=== PATIENT | female | born 1965 | race Caucasian/White ===

== ENCOUNTER 2021-06-19 11:20 | Outpatient (CLI) | payer MEDICARE, SELFPAY ==
--- NOTE | 2021-06-19 11:24 | MM_ITS ---
WS: [id number] Exam: [id number] Date/Time of Exam: 06/19/2021 11:26 AM Reason For Exam: SCREENING VIEWS: MLO and CC views both breasts. Comparison made with prior exam of 06/02/2017. Findings: There was no sign of mass, architectural distortion or suspicious calcification in either breast. He terogeneously dense MM/[place] [id number] Impression: BI-RADS: 2-Benign FOLLOW-UP: 1 Year Follow-up This mammogram was also analyzed by the Computer Aided Detection System R2 Imag e Deployment Engineer.
== END 2021-06-19 11:21 | disposition home or self-care (01) ==
PROVIDERS: PCP Family Medicine; Visit Provider Family Medicine
DX: Z12.31 Encounter for screening mammogram for malignant neoplasm of breast (principal)
CPT/HCPCS: 77067

== ENCOUNTER → 2021-08-04 10:09 | Outpatient (BNVA) | payer MEDICARE, SELFPAY | PROVIDERS: PCP Family Medicine; Referring Provider Family Medicine; Visit Provider Obstetrics & Gynecology | DX: N89.8 Other specified noninflammatory disorders of vagina (principal) | CPT/HCPCS: 87070; 87205 ==

== ENCOUNTER 2022-09-09 13:32 | Outpatient (CLI) | payer MEDICARE, SELFPAY ==
--- NOTE | 2022-09-09 14:01 | XR_ITS ---
WS: [id number] DEXA (DUAL ENERGY X-RAY ABSORPTIOMETRY) Bone mineral density was performed using a [employer] machine. HISTORY: POSTMENOPAUSAL COMPARISON: None available. Lumbar spine BMD (L1-L4): 1.033 g/cm2 T score: -1.2 Z score: -0.5 Total hip BMD: Left: 0.996 g/cm2. T score: -0.1 Z score: 0.5 Right: 1.026 g/cm2. T score: 0.1 Z score: 0.7 10 year probability of a major osteoporotic fracture is 11.3%. XR/XR DEXA axial skeleton* [id number] IMPRESSION: OSTEOPENIA based upon the WHO classification for females.
== END 2022-09-09 13:33 | disposition home or self-care (01) ==
LOC: RAD 13:37
PROVIDERS: PCP Family Medicine; Visit Provider Family Medicine
DX: Z78.0 Asymptomatic menopausal state (principal)
CPT/HCPCS: 77080

== ENCOUNTER → 2024-03-07 14:58 | Outpatient (CLI) | payer MEDICARE, SELFPAY ==
--- NOTE | 2024-03-07 15:22 | MM_ITS ---
WS: [id number] BILATERAL 3D TOMOSYNTHESIS DIGITAL SCREENING MAMMOGRAPHY WITH CAD CLINICAL INFORMATION: SCREEN HISTORY: Screening mammogram. No current complaints. COMPARISON: 2020 TECHNIQUE: Bilateral CC and MLO views. FINDINGS: The breasts are composed of heterogeneous fibroglandular density tissue, which can limit the detectio n of small underlying mass lesions. No suspicious mass, asymmetry, calcifications, or architectural d istortion. No evidence of malignancy. Incidental punctate and lucent centered calcifications. MM/[place] [id number] IMPRESSION: BI-RADS: 2-Benign FOLLOW UP: 1 Year Follow-up Recommend return to annual screening mammography.
== END | disposition home or self-care (01) ==
LOC: RAD 14:58
PROVIDERS: PCP Family Medicine; Visit Provider Family Medicine
DX: Z12.31 Encounter for screening mammogram for malignant neoplasm of breast (principal); R92.333 Mammographic heterogeneous density, bilateral breasts; R92.1 Mammographic calcification found on diagnostic imaging of breast
CPT/HCPCS: 77063; 77067

== ENCOUNTER 2024-10-07 11:18 | Emergency (ER) | payer MEDICARE, SELFPAY ==
--- NOTE | 2024-10-07 11:21 | XRR_ITS ---
PROCEDURE INFORMATION: Exam: XR Chest Exam date and time: 10/07/2024 11:28 AM Age: 59 years old Clinical indication: Cough and dyspnea; Additional info: Dyspnea/cough TECHNIQUE: Imaging protocol: Radiologic exam of the chest. Views: 1 view. COMPARISON: No relevant prior studies available. FINDINGS: Lungs: Linear scarring or atelectasis is noted at the left lung base. No consolidated infiltrates are noted. Pleural spaces: Unremarkable. No pleural effusion. No pneumothorax. Heart/Mediastinum: Calcified lymph nodes/granuloma seen in the left perihilar region. Heart size is normal. There is calcified plaque involving the aorta. Bones/joints: Unremarkable. XR/XR chest 1V portable [id number] IMPRESSION: 1. Linear scarring or atelectasis left lung base.
--- NOTE | 2024-10-07 11:21 | CTR_ITS ---
PROCEDURE INFORMATION: Exam: CT Abdomen And Pelvis With Contrast Exam date and time: 10/07/2024 12:17 PM Age: 59 years old Clinical indication: Abdominal pain; Epigastric; Prior surgery; Surgery date: 6+ months; Surgery type: Hysterectomy, appy; Additional info: Abd pain TECHNIQUE: Imaging protocol: Computed tomography of the abdomen and pelvis with contrast. Radiation optimization: All CT scans at this facility use at least one of these dose optimization techniques: automated exposure control; mA and/or kV adjustment per patient size (includes targeted exams where dose is matched to clinical indication); or iterative reconstruction. Contrast material: OMNIPAQUE 350; Contrast volume: 100 ml; Contrast route: INTRAVENOUS (IV); COMPARISON: CR (CHEST, ) 10/07/2024 11:28 AM RADIATION DOSE METRICS: Total DLP (mGy-cm): 699.69 FINDINGS: Lungs: 4 mm nodule in the right lower lobe series 3, image 6. 3 mm right lower lobe nodule series 3, image 10 and 9. Mild basilar scar versus atelectasis. Heart: Minimal pericardial effusion. Diaphragm: Moderate hiatal hernia. Liver: No significant liver pathology. Gallbladder and biliary ducts: No significant gallbladder pathology. No biliary dilatation. Pancreas: There is a low-attenuation structure of the posterior aspect of the pancreatic body measuring 10 x 9 mm on series 3, image 44. No main pancreatic ductal dilatation. Spleen: No significant splenic pathology. Adrenal glands: No significant adrenal pathology. Kidneys and ureters: No significant renal pathology. Stomach and bowel: Diverticular disease is present, greatest at the level of the sigmoid colon. No evidence of acute diverticulitis. Moderate amount of colonic stool. Appendix: Suture line associated with the cecum suggesting prior appendectomy; no abnormal appendix visualized. Intraperitoneal space: No ascites. Vasculature: No abdominal aortic aneurysm. Lymph nodes: No evidence of lymphadenopathy. Urinary bladder: Unremarkable urinary bladder. Reproductive: No significant uterine pathology. No significant adnexal pathology. Bones/joints: Mild degenerative change present in the spine. Soft tissues: Small bilateral fat containing inguinal hernias. Small fat containing umbilical hernia. CT/CT abdomen pelvis w con* [id number] IMPRESSION: 1. No acute pathology. 2. Diverticulosis with a moderate colonic stool. 3. Moderate hiatal hernia. 4. 1 cm low-attenuation pancreatic body lesion most likely representing side-branch IPMN in absence of history of pancreatitis; MRI recommended for more detailed assessment. 5. Small basilar pulmonary nodules measuring up to 4 mm; per Fleischner criteria, in this age group 12 month follow-up is recommended for surveillance.
[2024-10-07 11:24] VITALS: BP 157/83; PULSE 82; RESP 18; TEMP 37; O2SAT 97; BMI 26.2
--- NOTE | 2024-10-07 11:25 | W.ED.GENADLT ---
HPI - General Adult General: Chief complaint: Shortness of Breath/Dyspnea Stated complaint: black vomit, cough Time Seen by Provider: 10/07/24 11:20 History of Present Illness: 59-year-old female who presents to the emergency room with cough she has had off and on for a year she had various treatments for it been evaluated multiple times began to get worse again earlier this week was thought to be allergies she was started on some steroids. Worsening cough overnight coughed up to her what appeared to be black vomitus. No bright red blood. She denies any fever sweats or chills. No abdominal pain. There is also some thought that she may have worsening cough because of reflux from a hiatal hernia. She currently is 2 days from completing a steroid burst and taper. Associated symptoms: Reports nausea and vomiting; Deny chest pain, dyspnea or rash Related Data Home Medications ?Medication ?Instructions ?Recorded ?Confirmed atorvastatin 10 mg tablet 10 mg PO DAILY 08/04/21 10/07/24 citalopram 40 mg tablet 40 mg PO DAILY 08/04/21 10/07/24 cyclobenzaprine 10 mg tablet 10 mg PO TID PRN muscle spasms 08/04/21 10/07/24 hydrocodone 7.5 mg-acetaminophen 1 tab PO Q8H PRN Pain 08/04/21 10/07/24 325 mg tablet nortriptyline 25 mg capsule 25 mg PO DAILY 08/04/21 10/07/24 alprazolam 0.5 mg tablet 0.5 mg PO TID PRN Anxiety 10/07/24 10/07/24 benzonatate 200 mg capsule 200 mg PO BID PRN Cough 10/07/24 10/07/24 cetirizine 5 mg-pseudoephedrine ER 1 tab PO BID 10/07/24 10/07/24 120 mg tablet,extended release,12hr (Allergy D-12) dextromethorphan polistirex 30 10 ml PO Q12H PRN Cough 10/07/24 10/07/24 mg/5 mL oral susp ext.release 12hr dextromethorphan-guaifenesin 30 1 tab PO Q12H PRN Congestion 10/07/24 10/07/24 mg-600 mg tablet extended [id number] hr (Mucus DM) montelukast 10 mg tablet 10 mg PO DAILY 10/07/24 10/07/24 pantoprazole 40 mg tablet,delayed 40 mg PO DAILY 10/07/24 10/07/24 release prednisone 20 mg tablet 20 mg PO DAILY 10/07/24 10/07/24 Previous Rx's ?Medication ?Instructions ?Recorded gabapentin 300 mg capsule 300 mg PO QID #360 caps 08/27/20 albuterol sulfate 90 mcg/actuation 2 inh inhalation Q4H PRN shortness 10/07/24 aerosol inhaler of breath or wheezing #18 grams Allergies Allergy/AdvReac Type Severity Reaction Status Date / Time codeine Allergy Severe vomiting Verified 08/04/21 09:31 Review of Systems Const: Denies: fever(s) or chills Card: Denies: chest pain Resp: Reports: non-productive cough, wheezing and chest congestion; Denies: dyspnea GI: Reports: abdominal pain, nausea, vomiting and coffee ground emesis : Denies: dysuria, urinary frequency or urinary urgency Musc: Denies: neck pain or back pain Skin/Breast: Denies: rash PFSH ED PFSH: Medical History GERD (gastroesophageal reflux disease) Depression Arthritis Neuropathy Surgical History History of tubal ligation History of appendectomy H/O: hysterectomy Family History Mother Bleeding disorder Brother Hyperlipidemia Hypertension Heart disease Sister Hyperlipidemia Hypertension Heart disease Denies family history of Colon cancer Ovarian cancer Diabetes Clotting disorder Breast cancer Anesthesia complication Uterine cancer Thyroid disease Stroke Social History Smoking and tobacco/nicotine status: never used tobacco/nicotine Alcohol intake: never Substance/Drug Use: never Physical Exam Const: GENERAL APPEARANCE: cooperative ORIENTATION/CONSCIOUSNESS: Yes awake, Yes oriented to person, Yes oriented to place and Yes oriented to time HENMT: COMMON NORMALS: normocephalic, atraumatic and hearing grossly normal bilaterally HEAD & SCALP: normocephalic and atraumatic Resp: COMMON NORMALS: normal respiratory effort, No retractions, No use of accessory muscles and clear to auscultation bilaterally AUSCULTATION: clear to auscultation bilaterally Cardio: COMMON NORMALS: regular rate, regular rhythm and No murmurs present (Cardio) RATE: regular rate RHYTHM: regular rhythm GI: COMMON NORMALS: Soft to palpation and No hepatosplenomegaly present AUSCULTATION: Yes normoactive bowel sounds PALPATION: Yes Soft to palpation, No Tenderness to palpation present (GI), No Guarding due to palpation present (GI) and Yes No hepatosplenomegaly present Extremity: COMMON NORMALS: normal to inspection, capillary refill normal, no clubbing, cyanosis or edema, no calf tenderness and no pedal edema Neuro: SENSORIUM/ORIENTATION: Yes oriented to person, Yes oriented to place and Yes oriented to time Skin: COMMON NORMALS: no rashes or lesions noted GENERAL SKIN EXAM: no rashes or lesions noted Course Vital Signs: Vital signs: Vital Signs Temperature 98.6 F 10/07/24 11:24 Pulse Rate 84 10/07/24 14:06 Respiratory Rate 20 H 10/07/24 14:06 Blood Pressure 124/71 10/07/24 14:06 Pulse Oximetry 95 10/07/24 14:06 Oxygen Delivery Me thod Room Air 10/07/24 12:10 MDM - General Adult Medical Decision Making Oxygen sats remain good vital signs otherwise stable. Patient tested positive for COVID chest x-ray unremarkable discharge home complete the steroid taper she was given previously use albuterol as needed follow-up with primary care. Discussed with the patient likely she will continue to have a cough for some time. Differential Diagnosis Pneumonia PE reflux influenza Medical Records I reviewed the patient's medical records. Lab Data I reviewed the patient's lab results. 10/07/24 11:37 10/07/24 11:37 Radiology Impressions Abdomen/Pelvis CT 10/07/24 11:21 IMPRESSION: 1. No acute pathology. 2. Diverticulosis with a moderate colonic stool. 3. Moderate hiatal hernia. 4. 1 cm low-attenuation pancreatic body lesion most likely representing side-branch IPMN in absence of history of pancreatitis; MRI recommended for more detailed assessment. 5. Small basilar pulmonary nodules measuring up to 4 mm; per Fleischner criteria, in this age group 12 month follow-up is recommended for surveillance. Chest X-Ray 10/07/24 11:21 IMPRESSION: 1. Linear scarring or atelectasis left lung base. Laboratory Results WBC 9.72 10^3/uL (3.29-11.43) 10/07/24 11:37 RBC 4.49 10^6/uL (3.85-5.65) 10/07/24 11:37 Hgb 13.20 g/dL (11.27-16.99) 10/07/24 11:37 Hct 40.3 % (36-47) 10/07/24 11:37 MCV 89.8 fl (85-98) 10/07/24 11:37 MCH 29.4 pg (27-33) 10/07/24 11:37 MCHC 32.8 g/dL (30-55) 10/07/24 11:37 RDW 12.7 % (12.1-15.1) 10/07/24 11:37 Plt Count 195 10^3/cmm (157-399) 10/07/24 11:37 MPV 11.6 fL (7.4-10.4) H 10/07/24 11:37 Neut % (Auto) 83.6 % 10/07/24 11:37 Lymph % (Auto) 8.3 % 10/07/24 11:37 [place] % (Auto) 5.7 % 10/07/24 11:37 Eos % (Auto) 1.1 % 10/07/24 11:37 Baso % (Auto) 0.3 % 10/07/24 11:37 Neut # (Auto) 8.12 10^3/uL (1.8-7.7) H 10/07/24 11:37 Lymph # (Auto) 0.8 10^3/uL (0.8-4.8) 10/07/24 11:37 [place] # (Auto) 0.6 10^3/uL (0.2-0.9) 10/07/24 11:37 Eos # (Auto) 0.1 10^3/uL (0.0-0.8) 10/07/24 11:37 Baso # (Auto) 0.0 10^3/uL (0.0-0.1) 10/07/24 11:37 Nucleated RBC % (auto) 0 % 10/07/24 11:37 Nucleated RBCs # 0.0 /100WBC 10/07/24 11:37 D-Dimer 0.62 ug/mLFEU (0-0.59) H 10/07/24 11:37 Sodium 138 mmol/L (136-145) 10/07/24 11:37 Potassium 3.7 mmol/L (3.5-5.1) 10/07/24 11:37 Chloride 99 mmol/L (98-107) 10/07/24 11:37 Carbon Dioxide 25 mmol/L (22-29) 10/07/24 11:37 Anion Gap 17.7 (5-19) 10/07/24 11:37 BUN 15 mg/dL (8-23) 10/07/24 11:37 Creatinine 0.8 mg/dL (0.5-0.9) 10/07/24 11:37 GFR Calculation 72.9 mL/min (90-130) L 10/07/24 11:37 Glucose 109 mg/dL (65-115) 10/07/24 11:37 Calculated Osmolality 287 mOsm/kg (285-295) 10/07/24 11:37 Calcium 9.2 mg/dL (8.5-10.5) 10/07/24 11:37 Total Bilirubin 0.7 mg/dL (0.15-1.2) 10/07/24 11:37 AST 11 U/L (0-32) 10/07/24 11:37 ALT 9 U/L (0-33) 10/07/24 11:37 Alkaline Phosphatase 88 U/L (35-105) 10/07/24 11:37 Total Protein 7.4 g/dL (6.6-8.7) 10/07/24 11:37 Albumin 4.3 g/dL (3.5-5.2) 10/07/24 11:37 Globulin 3.1 g/dL (1.3-4.6) 10/07/24 11:37 Urine Color Yellow (Yellow) 10/07/24 13:00 Urine Appearance Clear (CLEAR) 10/07/24 13:00 Urine pH 5.5 (5-7) 10/07/24 13:00 Ur Specific [place] 1.051 (1.005-1.030) H 10/07/24 13:00 Urine Protein Negative (Negative) 10/07/24 13:00 Urine Glucose (UA) Negative (Normal) 10/07/24 13:00 Urine Ketones Negative (Negative) 10/07/24 13:00 Urine Blood Negative (Negative) 10/07/24 13:00 Urine Nitrate Negative (Negative) 10/07/24 13:00 Urine Bilirubin Negative (Negative) 10/07/24 13:00 Urine Urobilinogen 0.2 mg/dL (Negative) 10/07/24 13:00 Ur Leukocyte Esterase Negative (Negative) 10/07/24 13:00 Urine RBC 0-2 /hpf (0-2) 10/07/24 13:00 Urine WBC 0-5 /hpf (0-5) 10/07/24 13:00 Ur Squamous Epith Cells 0-5 /hpf (0-5) 10/07/24 13:00 Amorphous Sediment Not Reportable 10/07/24 13:00 Urine Bacteria None seen /hpf (NONE) 10/07/24 13:00 Hyaline Casts 0-4 /lpf H 10/07/24 13:00 Coronavirus (PCR) Positive (Negative) A 10/07/24 12:40 Influenza A (PCR) Negative (Negative) 10/07/24 12:40 Influenza Type B (PCR) Negative (Negative) 10/07/24 12:40 RSV (PCR) Negative (Negative) 10/07/24 12:40 All radiology interpretation(s) finalized by discharge Discharge Plan Discharge Patient Disposition: Home Clinical Impression: COVID-19 Condition: Stable Prescriptions: New albuterol sulfate 90 mcg/actuation HFA aerosol inhaler 2 inh INHALATION Q4H PRN (Reason: shortness of breath or wheezing) Qty: 18 0RF No Action nortriptyline 25 mg capsule 25 mg PO DAILY citalopram 40 mg tablet 40 mg PO DAILY atorvastatin 10 mg tablet 10 mg PO DAILY hydrocodone-acetaminophen 7.5-325 mg tablet 1 tab PO Q8H PRN (Reason: Pain) cyclobenzaprine 10 mg tablet 10 mg PO TID PRN (Reason: muscle spasms) gabapentin 300 mg capsule 300 mg PO QID Qty: 360 0RF cetirizine-pseudoephedrine [Allergy D-12] 5-120 mg Tablet Extended Release 12 Hr 1 tab PO BID dextromethorphan polistirex 30 mg/5 mL Suspension,Extended Rel 12 Hr 10 ml PO Q12H PRN (Reason: Cough) benzonatate 200 mg Capsule 200 mg PO BID PRN (Reason: Cough) prednisone 20 mg Tablet 20 mg PO DAILY alprazolam 0.5 mg Tablet 0.5 mg PO TID PRN (Reason: Anxiety) pantoprazole 40 mg Tablet,Delayed Release (Dr/Ec) 40 mg PO DAILY montelukast 10 mg Tablet 10 mg PO DAILY Mucus DM 30-600 mg Tablet Extended Release 12 Hr 1 tab PO Q12H PRN (Reason: Congestion) Discharge Orders: Discharge ED (Routine); Ordered 10/07/24 Ordered By: Kartik Burden Referrals: Ovidio Park MD [Primary Care Provider] - Discharge Diet: Usual diet Discharge Activity: Resume usual activity Patient Instructions: COVID-19 (Coronavirus Disease 2019) (ED), Opioid Safety, Pain Management Activity Restrictions/Additional Instructions: Thank you for choosing [facility] for your healthcare needs today. It is very important that you follow up as instructed or that you return to the Emergency Department should you have concerns or if your condition changes or worsens in any way. Print Language: [place] Citizen Coding Level of Care Code ED Stove Installer for Rosanne Plunkett
[2024-10-07 11:43] LABS: Basophils % 0.3 %; Eosinophils # 0.1 10^3/uL (0.0-0.8); Eosinophils % 1.1 %; Hematocrit 40.3 % (36-47); Lymphocytes # 0.8 10^3/uL (0.8-4.8); Lymphocytes % 8.3 %; Mean Corpuscular HGB Conc 32.8 g/dL (30-55); Mean Corpuscular Hemoglobin 29.4 pg (27-33); Mean Corpuscular Volume 89.8 fl (85-98); Mean Platelet Volume 11.6 fL (7.4-10.4); Monocytes # 0.6 10^3/uL (0.2-0.9); Monocytes % 5.7 %; Neutrophils # 8.12 10^3/uL (1.8-7.7); Neutrophils % 83.6 %; Nucleated Red Blood Cells % 0 %; Platelet Count 195 10^3/cmm (157-399); Red Blood Count 4.49 10^6/uL (3.85-5.65); Red Cell Distribution Width 12.7 % (12.1-15.1); White Blood Count 9.72 10^3/uL (3.29-11.43)
--- NOTE | 2024-10-07 11:58 | PC.PHAR ---
Pt states only took the medications for cough and congestion this morning.
[2024-10-07 12:05] LABS: Alanine Aminotransferase 9 U/L (0-33); Albumin Level 4.3 g/dL (3.5-5.2); Alkaline Phosphatase 88 U/L (35-105); Anion Gap 17.7 (5-19); Aspartate Amino Transferase 11 U/L (0-32); Blood Urea Nitrogen 15 mg/dL (8-23); Calcium 9.2 mg/dL (8.5-10.5); Carbon Dioxide 25 mmol/L (22-29); Chloride 99 mmol/L (98-107); Creatinine Clr Calc Pharmacy 86.6221; Globulin 3.1 g/dL (1.3-4.6); Glomerular Filtration Rate 72.9 mL/min (90-130); Glucose 109 mg/dL (65-115); Osmolality Calculated 287 mOsm/kg (285-295); Potassium 3.7 mmol/L (3.5-5.1); Sodium 138 mmol/L (136-145); Total Bilirubin 0.7 mg/dL (0.15-1.2); Total Protein 7.4 g/dL (6.6-8.7)
[2024-10-07 12:08] LABS: D Dimer 0.62 ug/mLFEU (0-0.59)
[2024-10-07 12:10] VITALS: PULSE 73; RESP 16; O2SAT 94
[2024-10-07] MEDS: ipratropium-albuterol 3 mL Neb INHALATION (12:10)
[2024-10-07 12:13] VITALS: PULSE 84
[2024-10-07] MEDS: iohexol 350 mg/mL 500 mL Btl (per mL) IV (12:21)
--- NOTE | 2024-10-07 12:35 | ECG_ITS ---
[facility] Test Date: 2024-10-07 Pat Name: Misty Fonseca Department: Room: Gender: Female Business Analysis Specialist: : [id number] Requested By: Kartik Darnell Order Number: [id number] Reading MD: MATHEUS CHONG Measurements Intervals [place] Rate: 92 P: 61 PA: 147 QRS: -4 QRSD: 90 T: 163 QT: 249 QTc: 309 Interpretive Statements SINUS RHYTHM LOW QRS VOLTAGE IN PRECORDIAL LEADS [QRS DEFLECTION < 1.0 mV IN CHEST LEADS] NONSPECIFIC ST & T-WAVE ABNORMALITY No previous ECG available for comparison Electronically Signed On 10-07-2024 19:14:51 AUDITING SPECIALIST by MATHEUS CHONG [email or web address]
[2024-10-07 13:11] LABS: Bilirubin Urine Negative (Negative); Blood Urine Negative (Negative); Glucose Urine UA Negative (Normal); Ketones Urine Negative (Negative); Leukocyte Esterase Urine Negative (Negative); Nitrate Urine Negative (Negative); Protein Urine Negative (Negative); Urine Appearance Clear (CLEAR); Urine Color Yellow (Yellow); Urobilinogen Urine 0.2 mg/dL (Negative); pH Urine 5.5 (5-7)
[2024-10-07 13:13] LABS: Add Urine Microscopic? YES; Bacteria Urine None Seen /hpf; Hyaline Casts Urine 0-4 /lpf; RBC Urine 0-2 /hpf (0-2); Squamous Epithelial Cell Urine 0-5 /hpf (0-5); WBC Urine 0-5 /hpf (0-5)
[2024-10-07 13:14] LABS: Specific Gravity, Urine 1.051 (1.005-1.030)
[2024-10-07 13:23] LABS: Influenza A NEGATIVE (Negative); Influenza B NEGATIVE (Negative); Respiratory Syncytial Virus Ce NEGATIVE (Negative)
[2024-10-07 13:28] VITALS: BP 124/71; PULSE 83; RESP 21; O2SAT 94
[2024-10-07 13:30] LABS: SARS-CoV-2 PCR Positive (Negative)
[2024-10-07 14:06] VITALS: BP 124/71; PULSE 84; RESP 20; O2SAT 95
== END 2024-10-07 14:06 | disposition home or self-care (01) ==
PROVIDERS: Emergency Provider Family Medicine; PCP Family Medicine
DX: U07.1 COVID-19 (principal); Z11.52 Encounter for screening for COVID-19
CPT/HCPCS: 36415; 71045; 74177; 80053; 81001; 85025; 85378; 87637; 93005; 94640; 99285

== ENCOUNTER 2024-11-08 08:50 | Outpatient (CLI) | payer MEDICARE, SELFPAY ==
--- NOTE | 2024-11-08 09:02 | MRR_ITS ---
PROCEDURE INFORMATION: Exam: MR Abdomen Without Contrast Exam date and time: 11/08/2024 9:42 AM Age: 59 years old Clinical indication: Condition or disease; Pancreatic condition; Other: Mass in body; Prior surgery; Surgery date: 6+ months; Surgery type: Hysterectomy, appy, tubal; Additional info: Mass in body of pancreas on recent CT scan TECHNIQUE: Imaging protocol: Magnetic resonance imaging of the abdomen without contrast. COMPARISON: CT abdomen pelvis w con* [id number] 10/07/2024 12:17 PM FINDINGS: Diaphragm: A moderate hiatal hernia is present above the level of the diaphragm. Liver: Moderately decreased signal of the liver on out of phase imaging relative to in phase imaging. No mass. Gallbladder and biliary ducts: The gallbladder is partially contracted. No extrahepatic biliary ductal dilatation or calculus. Pancreas: No pancreatic cyst or mass. No pancreatic ductal dilatation. No abnormal pancreatic enhancement. Spleen: The spleen is borderline enlarged measuring 13.1 cm longitudinally. Nonenhancing splenic calcified granulomas correlating with CT findings. Adrenal glands: Unremarkable. No mass. Kidneys: Unremarkable. No solid mass. No hydronephrosis. Stomach and bowel: Visualized stomach and intestines are unremarkable. Intraperitoneal space: No free fluid. Vasculature: No abdominal aortic aneurysm. Lymph nodes: No enlarged nodes. Bones/joints: No acute abnormality identified. No suspicious lesions. Soft tissues: Unremarkable. MR/MR abdomen wo/w con* [id number] IMPRESSION: 1. No pancreatic cyst or mass. 2. Borderline splenomegaly, with calcified granulomas. 3. Fatty infiltration of the liver. 4. Hiatal hernia.
[2024-11-08] MEDS: gadobenate dimeglumine 20 mL vial 13 ML IV (10:05)
== END 2024-11-08 08:51 | disposition home or self-care (01) ==
PROVIDERS: PCP Family Medicine; Visit Provider Family Medicine
DX: K86.2 Cyst of pancreas (principal); D73.89 Other diseases of spleen; K76.0 Fatty (change of) liver, not elsewhere classified; K44.9 Diaphragmatic hernia without obstruction or gangrene
CPT/HCPCS: 74183

== ENCOUNTER 2025-05-21 09:39 | Outpatient (CLI) | payer MEDICARE, SELFPAY ==
--- NOTE | 2025-05-21 09:48 | MM_ITS ---
WS: [id number] BILATERAL SCREENING DIGITAL TOMOSYNTHESIS MAMMOGRAM WITH CAD HISTORY: SCREENING COMPARISON: 03/07/2024, 06/19/2021, 06/02/2017 Bilateral CC and MLO views with tomosynthesis and synthetic mammography submitted. Computer aided detection analyzed. Breast composition: The breasts are heterogeneously dense, which may obscure small masses. No suspicious masses, microcalcifications or architectural distortion. Benign coarse calcifications in each breast. Asymmetry in the superior retromammary fat RIGHT breast is stable. There are no new areas of dis tortion. No mass. MM/MM scr tomosynthesis [id number] IMPRESSION: BI-RADS: 2 - Benign FOLLOW UP: 1 Year Follow-up
== END 2025-05-21 09:40 | disposition home or self-care (01) ==
LOC: RAD 09:42
PROVIDERS: PCP Family Medicine; Visit Provider Family Medicine
DX: Z12.31 Encounter for screening mammogram for malignant neoplasm of breast (principal); R92.333 Mammographic heterogeneous density, bilateral breasts; R92.1 Mammographic calcification found on diagnostic imaging of breast; N64.89 Other specified disorders of breast
CPT/HCPCS: 77063; 77067

== ENCOUNTER 2025-08-03 08:48 | Emergency (ER) | payer MEDICARE, SELFPAY ==
[2025-08-03 08:52] VITALS: BP 130/62; PULSE 75; RESP 17; TEMP 36.6; O2SAT 98; BMI 25.8
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
[2025-08-03 10:54] VITALS: PULSE 71; O2SAT 98
[2025-08-03 12:11] VITALS: BP 123/80; PULSE 72; O2SAT 99
== END 2025-08-03 12:15 | disposition home or self-care (01) ==
PROVIDERS: Emergency Provider Emergency Medicine; PCP Family Medicine
DX: S13.4XXA Sprain of ligaments of cervical spine, initial encounter (principal); S39.012A Strain of muscle, fascia and tendon of lower back, initial encounter; V89.2XXA Person injured in unspecified motor-vehicle accident, traffic, initial encounter
CPT/HCPCS: 72125; 99284

== ENCOUNTER 2025-08-13 07:50 | Outpatient (CLI) | payer MEDICARE, SELFPAY ==
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
== END 2025-08-13 07:51 | disposition home or self-care (01) ==
LOC: RAD 07:53
PROVIDERS: PCP Family Medicine; Visit Provider Clinical Nurse Specialist Family Health
DX: M47.812 Spondylosis without myelopathy or radiculopathy, cervical region (principal); S13.4XXA Sprain of ligaments of cervical spine, initial encounter; V49.40XA Driver injured in collision with unspecified motor vehicles in traffic accident, initial encounter; M43.12 Spondylolisthesis, cervical region; M48.02 Spinal stenosis, cervical region; M50.222 Other cervical disc displacement at C5-C6 level; M53.82 Other specified dorsopathies, cervical region
CPT/HCPCS: 72141